=== PATIENT | male | born 1990 | race Hispanic/Latino ===

== ENCOUNTER 2017-11-14 22:48 | Emergency (ER) | payer OTHER ==
[2017-11-14] MEDS ORDERED: LIDOCAINE 2%-EPI 1:200,000 20 ML VIAL IJ ONE (23:22)
[2017-11-15 00:34] LABS: CREATININE 0.8 mg/dL (0.5-1.5); POTASSIUM 3.5 mmol/L (3.5-5.1)
[2017-11-15] MEDS ORDERED: ONDANSETRON ODT 4 MG TAB ONE (01:49)
== END 2017-11-15 02:58 | disposition home or self-care (01) ==
LOC: EDH 22:48
DX: D18.01 Hemangioma of skin and subcutaneous tissue (principal); I10 Essential (primary) hypertension; Z87.891 Personal history of nicotine dependence
CPT/HCPCS: 11421; 36415; 80048; 85018; 86850; 86900; 86901; 88304; 99284; J3490

== ENCOUNTER 2022-12-27 05:07 | Emergency (ER) | payer BC, OTHER ==
[~2022-12-27] VITALS: Ht 172.7 cm; Wt 104.8 kg
[2022-12-27] MEDS ORDERED: HYDRALAZINE 20MG/ML VIAL IV ONE ×2 (05:30→06:00)
[2022-12-27 05:31] LABS: BASOPHILS % (AUTO) 1.5 % (0.0-5.0); EOSINOPHILS % (AUTO) 1.9 % (0.0-8.0); HEMATOCRIT 39.6 % (42-54); LYMPHOCYTES % (AUTO) 35.1 % (21.0-51.0); MEAN CORPUSCULAR HEMOGLOBIN 34.3 pg (27.0-33.0); MEAN CORPUSCULAR HGB CONC 34.8 g/dL (32.0-36.0); MEAN CORPUSCULAR VOLUME 98.5 fL (79-99); MONOCYTES % (AUTO) 15.8 % (3.0-13.0); NEUTROPHILS % (AUTO) 45.3 % (40.0-77.0); PLATELET COUNT (AUTO) 57 K/uL (130-400); RED BLOOD CELL COUNT(AUTO) 4.02 MIL/uL (4.50-6.20); RED CELL DISTRIBUTION WIDTH 16.3 % (11.0-15.5); WHITE BLOOD COUNT (AUTO) 5.2 K/uL (4.8-10.8)
[2022-12-27 05:41] LABS: CREATININE 0.6 mg/dL (0.5-1.5); POTASSIUM 3.3 mmol/L (3.5-5.1)
[2022-12-27 05:44] LABS: ALBUMIN 2.7 g/dL (3.5-5.0); INR 1.41 (0.85-1.15); PROTHROMBIN TIME 15.1 SEC (9.6-11.6); TOTAL PROTEIN, SERUM 8.2 g/dL (6.0-8.3)
[2022-12-27 05:45] LABS: PARTIAL THROMBOPLASTIN TIME 39.6 SEC (26.3-35.5)
[2022-12-27 05:59] LABS: PLATELET MORPHOLOGY COMMENT DECREASED
[2022-12-27] MEDS ORDERED: LISI1TAB53 PO (06:52)
[2022-12-27] MEDS ORDERED: PROP80SR PO (06:52)
[2022-12-27 06:55] VITALS: BP 134/70
== END 2022-12-27 07:00 | disposition home or self-care (01) ==
LOC: EDH 05:07
DX: I10 Essential (primary) hypertension (principal); R04.0 Epistaxis; K74.60 Unspecified cirrhosis of liver; K21.9 Gastro-esophageal reflux disease without esophagitis; F10.229 Alcohol dependence with intoxication, unspecified; Y90.7 Blood alcohol level of 200-239 mg/100 ml
CPT/HCPCS: 99284; 96374; 80053; 85025; 85610; 85730; 36415; 96376; J0360 ×2